=== PATIENT | male | born 1950 | race Caucasian/White ===

== ENCOUNTER 2023-05-20 11:50 | Inpatient (IN) | payer OTHER ==
[2023-05-20 13:58] LABS: BASO % 0.9 % (0-2.0); EOS % 1.4 % (0-4.5); HEMATOCRIT 43.7 % (35.4-49); HEMOGLOBIN 15.1 GM/dL (11.7-16.9); LYMPH % 33.3 % (8-40); MCH 31.7 pg (25.7-33.7); MCHC 34.4 g/dl (32.0-35.9); MEAN PLT VOLUME 7.2 fl (7.5-11.1); MONO % 10.3 % (3.8-10.2); NEUT % 54.1 % (42.8-82.8); PLATELET COUNT 311 10^3/uL (134-434); RBC 4.75 M/mm3 (4.00-5.60); RDW 13.1 % (11.9-15.9); WHITE BLOOD COUNT 4.1 K/mm3 (4.0-10.0)
[2023-05-20 14:28] LABS: ALBUMIN 3.6 g/dl (3.4-5.0); BLOOD UREA NITROGEN 20.1 mg/dL (7-18); CALCIUM 9.1 mg/dL (8.5-10.1)
[2023-05-20 14:29] LABS: MAGNESIUM 2.2 mg/dL (1.8-2.4)
[2023-05-20 14:31] LABS: CREATININE 0.7 mg/dL (0.55-1.3); PHOSPHOROUS 3.7 mg/dL (2.5-4.9)
[2023-05-20 14:34] LABS: BILIRUBIN,TOTAL 0.4 mg/dL (0.2-1); TOT PROT 7.3 g/dl (6.4-8.2)
[2023-05-20 14:38] LABS: N-TERMINAL BNP 95.1 pg/ml (5-125)
[2023-05-20 20:41] LABS: URINE APPEARANCE CLEAR; URINE BILIRUBIN NEGATIVE (NEGATIVE); URINE COLOR YELLOW; URINE GLUCOSE (UA) NEGATIVE (NEGATIVE); URINE KETONE 3+ (NEGATIVE); URINE LEUK ESTERASE NEGATIVE (NEGATIVE); URINE NITRITE NEGATIVE (NEGATIVE); URINE PROTEIN NEGATIVE (NEGATIVE); URINE UROBILINOGEN 0.2 mg/dL (0.2-1.0)
[2023-05-21 01:59] VITALS: BMI 18.3
[2023-05-21] MEDS: GABAPENTIN 100 MG CAPSULE PO SCH ×2 (09:34→21:52)
[2023-05-21] MEDS: ENOXAPARIN NA (PORCINE) 40 MG/0.4 ML DISP.SYRIN SQ SCH (09:34)
[2023-05-21] MEDS: ASPIRIN COATED 81 MG TABLET.EC PO SCH (09:34)
[2023-05-21] MEDS ORDERED: PATIENT'S OWN MEDICATION (NON-FORMULARY) (Enzalutamide [Xtandi] 80 MG Tablet) PO SCH (10:00)
[2023-05-21 10:51] LABS: HEMATOCRIT 39.3 % (35.4-49); HEMOGLOBIN 13.9 GM/dL (11.7-16.9); MCH 32.3 pg (25.7-33.7); MCHC 35.4 g/dl (32.0-35.9); MEAN CELL VOLUME 91.1 fl (80-96); MEAN PLT VOLUME 7.4 fl (7.5-11.1); PLATELET COUNT 277 10^3/uL (134-434); RBC 4.31 M/mm3 (4.00-5.60); RDW 12.7 % (11.9-15.9); WHITE BLOOD COUNT 3.3 K/mm3 (4.0-10.0)
[2023-05-21 11:10] LABS: POTASSIUM 3.8 mmol/L (3.5-5.1)
[2023-05-21 11:18] LABS: ALBUMIN 3.2 g/dl (3.4-5.0)
[2023-05-21 11:19] LABS: BLOOD UREA NITROGEN 17.7 mg/dL (7-18); CALCIUM 8.8 mg/dL (8.5-10.1); MAGNESIUM 2.1 mg/dL (1.8-2.4)
[2023-05-21 11:22] LABS: CREATININE 0.5 mg/dL (0.55-1.3)
[2023-05-21 11:24] LABS: BILIRUBIN,TOTAL 0.5 mg/dL (0.2-1); TOT PROT 6.4 g/dl (6.4-8.2)
[2023-05-21] MEDS ORDERED: PATIENT'S OWN MEDICATION (NON-FORMULARY) (Enzalutamide [Xtandi] 160 MG) PO SCH ×2 (13:00→13:10)
[2023-05-21] MEDS: AMINO ACIDS/PROTEIN HYDROLYS 30 ML LIQUID.PKT PO SCH (17:25)
[2023-05-21] MEDS: BACITRACIN ZINC 15 GM TUBE TOPICAL OINTMENT TP SCH (21:52)
[2023-05-21] MEDS: ATORVASTATIN CA 10 MG TABLET (FP) PO SCH (21:52)
[2023-05-21] MEDS: FLUTICASONE PROP 0.05% 16 GM NASAL SPRAY NS SCH (21:54)
[2023-05-22] MEDS: ENOXAPARIN NA (PORCINE) 40 MG/0.4 ML DISP.SYRIN SQ SCH (09:47)
[2023-05-22] MEDS: ASPIRIN COATED 81 MG TABLET.EC PO SCH (09:48)
[2023-05-22] MEDS: AMINO ACIDS/PROTEIN HYDROLYS 30 ML LIQUID.PKT PO SCH ×2 (09:48→17:40)
[2023-05-22] MEDS: GABAPENTIN 100 MG CAPSULE PO SCH ×2 (09:48→21:29)
[2023-05-22] MEDS: PATIENT'S OWN MEDICATION (NON-FORMULARY) (Enzalutamide [Xtandi] 160 MG) PO SCH (09:48)
[2023-05-22] MEDS: BACITRACIN ZINC 15 GM TUBE TOPICAL OINTMENT TP SCH ×2 (09:48→21:32)
[2023-05-22] MEDS: MULTIVITAMINS (DAILY MVI) TABLET (FP) PO SCH (09:48)
[2023-05-22] MEDS: FLUTICASONE PROP 0.05% 16 GM NASAL SPRAY NS SCH ×2 (09:50→21:32)
[2023-05-22 09:54] LABS: BASO % 0.6 % (0-2.0); EOS % 1.6 % (0-4.5); HEMOGLOBIN 13.4 GM/dL (11.7-16.9); LYMPH % 16.4 % (8-40); MCH 31.4 pg (25.7-33.7); MCHC 33.4 g/dl (32.0-35.9); MEAN PLT VOLUME 7.6 fl (7.5-11.1); MONO % 8.2 % (3.8-10.2); NEUT % 73.2 % (42.8-82.8); PLATELET COUNT 293 10^3/uL (134-434); RBC 4.26 M/mm3 (4.00-5.60); RDW 12.5 % (11.9-15.9); WHITE BLOOD COUNT 6.7 K/mm3 (4.0-10.0)
[2023-05-22 10:12] LABS: CALCIUM 8.8 mg/dL (8.5-10.1)
[2023-05-22 10:13] LABS: ALBUMIN 3.1 g/dl (3.4-5.0); BLOOD UREA NITROGEN 18.8 mg/dL (7-18); MAGNESIUM 2.2 mg/dL (1.8-2.4)
[2023-05-22 10:16] LABS: CREATININE 0.6 mg/dL (0.55-1.3)
[2023-05-22 10:18] LABS: BILIRUBIN,TOTAL 0.5 mg/dL (0.2-1); TOT PROT 6.3 g/dl (6.4-8.2)
[2023-05-22] MEDS: ATORVASTATIN CA 10 MG TABLET (FP) PO SCH (21:29)
[2023-05-23] MEDS: AMINO ACIDS/PROTEIN HYDROLYS 30 ML LIQUID.PKT PO SCH ×2 (08:20→17:01)
[2023-05-23] MEDS: PATIENT'S OWN MEDICATION (NON-FORMULARY) (Enzalutamide [Xtandi] 160 MG) PO SCH (08:21)
[2023-05-23 08:34] LABS: POTASSIUM 4.1 mmol/L (3.5-5.1)
[2023-05-23 08:36] LABS: ALBUMIN 2.9 g/dl (3.4-5.0); CALCIUM 8.4 mg/dL (8.5-10.1)
[2023-05-23 08:37] LABS: MAGNESIUM 2.1 mg/dL (1.8-2.4)
[2023-05-23 08:39] LABS: CREATININE 0.5 mg/dL (0.55-1.3)
[2023-05-23 08:41] LABS: BILIRUBIN,TOTAL 0.5 mg/dL (0.2-1)
[2023-05-23 08:42] LABS: BASO % 0.3 % (0-2.0); EOS % 1.5 % (0-4.5); HEMATOCRIT 38.8 % (35.4-49); HEMOGLOBIN 13.4 GM/dL (11.7-16.9); LYMPH % 17.1 % (8-40); MCH 31.8 pg (25.7-33.7); MCHC 34.5 g/dl (32.0-35.9); MEAN CELL VOLUME 92.3 fl (80-96); MEAN PLT VOLUME 7.8 fl (7.5-11.1); NEUT % 72.1 % (42.8-82.8); PLATELET COUNT 265 10^3/uL (134-434); RBC 4.21 M/mm3 (4.00-5.60); WHITE BLOOD COUNT 6.4 K/mm3 (4.0-10.0)
[2023-05-23] MEDS: ASPIRIN COATED 81 MG TABLET.EC PO SCH (09:10)
[2023-05-23] MEDS: GABAPENTIN 100 MG CAPSULE PO SCH ×2 (09:10→22:53)
[2023-05-23] MEDS: ENOXAPARIN NA (PORCINE) 40 MG/0.4 ML DISP.SYRIN SQ SCH (09:10)
[2023-05-23] MEDS: MULTIVITAMINS (DAILY MVI) TABLET (FP) PO SCH (09:11)
[2023-05-23] MEDS: BACITRACIN ZINC 15 GM TUBE TOPICAL OINTMENT TP SCH ×2 (09:12→22:52)
[2023-05-23] MEDS: FLUTICASONE PROP 0.05% 16 GM NASAL SPRAY NS SCH ×2 (09:13→22:52)
[2023-05-23] MEDS: ATORVASTATIN CA 10 MG TABLET (FP) PO SCH (22:53)
[2023-05-24] MEDS: AMINO ACIDS/PROTEIN HYDROLYS 30 ML LIQUID.PKT PO SCH ×2 (08:26→17:12)
[2023-05-24 08:30] LABS: HEMATOCRIT 38.4 % (35.4-49); HEMOGLOBIN 13.1 GM/dL (11.7-16.9); LYMPH % 25.4 % (8-40); MCH 31.6 pg (25.7-33.7); MEAN CELL VOLUME 93.1 fl (80-96); MEAN PLT VOLUME 7.7 fl (7.5-11.1); MONO % 11.8 % (3.8-10.2); NEUT % 57.8 % (42.8-82.8); PLATELET COUNT 264 10^3/uL (134-434); RBC 4.13 M/mm3 (4.00-5.60); RDW 12.5 % (11.9-15.9); WHITE BLOOD COUNT 3.9 K/mm3 (4.0-10.0)
[2023-05-24 08:31] LABS: POTASSIUM 4.3 mmol/L (3.5-5.1)
[2023-05-24 08:33] LABS: CALCIUM 8.4 mg/dL (8.5-10.1)
[2023-05-24] MEDS: PATIENT'S OWN MEDICATION (NON-FORMULARY) (Enzalutamide [Xtandi] 160 MG) PO SCH (08:33)
[2023-05-24 08:34] LABS: ALBUMIN 2.8 g/dl (3.4-5.0); BLOOD UREA NITROGEN 20.9 mg/dL (7-18); MAGNESIUM 2.1 mg/dL (1.8-2.4)
[2023-05-24 08:37] LABS: CREATININE 0.5 mg/dL (0.55-1.3)
[2023-05-24 08:38] LABS: BILIRUBIN,TOTAL 0.3 mg/dL (0.2-1)
[2023-05-24] MEDS: ASPIRIN COATED 81 MG TABLET.EC PO SCH (09:39)
[2023-05-24] MEDS: GABAPENTIN 100 MG CAPSULE PO SCH ×2 (09:39→21:53)
[2023-05-24] MEDS: ENOXAPARIN NA (PORCINE) 40 MG/0.4 ML DISP.SYRIN SQ SCH (09:39)
[2023-05-24] MEDS: MULTIVITAMINS (DAILY MVI) TABLET (FP) PO SCH (09:39)
[2023-05-24] MEDS: FLUTICASONE PROP 0.05% 16 GM NASAL SPRAY NS SCH ×2 (09:44→21:54)
[2023-05-24] MEDS: BACITRACIN ZINC 15 GM TUBE TOPICAL OINTMENT TP SCH ×2 (10:00→21:53)
[2023-05-24] MEDS: ATORVASTATIN CA 10 MG TABLET (FP) PO SCH (21:53)
[2023-05-25] MEDS: AMINO ACIDS/PROTEIN HYDROLYS 30 ML LIQUID.PKT PO SCH ×2 (08:24→17:24)
[2023-05-25] MEDS: PATIENT'S OWN MEDICATION (NON-FORMULARY) (Enzalutamide [Xtandi] 160 MG) PO SCH (08:24)
[2023-05-25] MEDS: ENOXAPARIN NA (PORCINE) 40 MG/0.4 ML DISP.SYRIN SQ SCH (09:22)
[2023-05-25] MEDS: FLUTICASONE PROP 0.05% 16 GM NASAL SPRAY NS SCH ×2 (09:23→22:54)
[2023-05-25] MEDS: ASPIRIN COATED 81 MG TABLET.EC PO SCH (09:23)
[2023-05-25] MEDS: GABAPENTIN 100 MG CAPSULE PO SCH ×2 (09:23→22:53)
[2023-05-25] MEDS: MULTIVITAMINS (DAILY MVI) TABLET (FP) PO SCH (09:23)
[2023-05-25] MEDS: BACITRACIN ZINC 15 GM TUBE TOPICAL OINTMENT TP SCH ×2 (11:40→22:55)
[2023-05-25] MEDS: ATORVASTATIN CA 10 MG TABLET (FP) PO SCH (22:53)
[2023-05-26 08:31] VITALS: RESP 18
[2023-05-26] MEDS: ENOXAPARIN NA (PORCINE) 40 MG/0.4 ML DISP.SYRIN SQ SCH (09:40)
[2023-05-26] MEDS: AMINO ACIDS/PROTEIN HYDROLYS 30 ML LIQUID.PKT PO SCH ×2 (09:40→17:06)
[2023-05-26] MEDS: PATIENT'S OWN MEDICATION (NON-FORMULARY) (Enzalutamide [Xtandi] 160 MG) PO SCH (09:42)
[2023-05-26] MEDS: MULTIVITAMINS (DAILY MVI) TABLET (FP) PO SCH (09:43)
[2023-05-26] MEDS: FLUTICASONE PROP 0.05% 16 GM NASAL SPRAY NS SCH ×2 (09:43→21:45)
[2023-05-26] MEDS: GABAPENTIN 100 MG CAPSULE PO SCH ×2 (09:43→21:45)
[2023-05-26] MEDS: ASPIRIN COATED 81 MG TABLET.EC PO SCH (09:43)
[2023-05-26] MEDS: BACITRACIN ZINC 15 GM TUBE TOPICAL OINTMENT TP SCH ×2 (09:44→21:46)
[2023-05-26] MEDS: POLYETHYLENE GLYCOL (HEALTHYLAX) 3350 17 GM PACKET PO SCH ×2 (10:26→22:40)
[2023-05-26 17:26] VITALS: BP 117/55; PULSE 75; TEMP 97.9
[2023-05-26] MEDS: ATORVASTATIN CA 10 MG TABLET (FP) PO SCH (21:45)
== END 2023-05-26 21:00 | DRG 542 ==
LOC: JER 11:50 → JERBED 20:03 → J7W 20:57 → OBSVTOIN 22:52
PROVIDERS: ADMIT Internal Medicine; ATTEND Nurse Practitioner Family
DX: C79.51 Secondary malignant neoplasm of bone (principal); E43 Unspecified severe protein-calorie malnutrition; Z68.1 Body mass index [BMI] 19.9 or less, adult; C61 Malignant neoplasm of prostate; G62.89 Other specified polyneuropathies; E78.5 Hyperlipidemia, unspecified; R29.6 Repeated falls; R33.8 Other retention of urine; I10 Essential (primary) hypertension; R53.1 Weakness; M51.37 Other intervertebral disc degeneration, lumbosacral region; R26.81 Unsteadiness on feet
CPT/HCPCS: 36415; 70450-TC; 71045-TC-FY; 72157-TC; 72158-TC; 72170-TC-FY; 73552-TC-LT-FY; 80053; 81003; 82607; 83036; 83605; 83735; 83880; 84100; 84443; 84484; 85025; 85027; 87086; 87635; 93005; 93010; 97116-GP; 97162-GP; 99285-25; G0378

== ENCOUNTER 2023-11-15 20:55 | Inpatient (IN) | payer OTHER ==
[2023-11-15] MEDS ORDERED: ACETAMINOPHEN INJECTION 100 ML IVPB ONE (21:26)
[2023-11-15] MEDS: SODIUM CHLORIDE 0.9% 500 ML INFUS.BAG IV ONE (21:31)
[2023-11-15] MEDS: ACETAMINOPHEN 1000 MG/100 ML BAG IVPB ONE (21:31)
[2023-11-15] MEDS ORDERED: PIPERACILLIN/TAZOB 4.5 GM 4.5 GM/100 ML BAG IVPB ONE (21:33)
[2023-11-15 21:39] LABS: BASO % 0.2 % (0-2.0); HEMATOCRIT 42.1 % (35.4-49); HEMOGLOBIN 14.2 GM/dL (11.7-16.9); LYMPH % 8.9 % (8-40); MCH 31.4 pg (25.7-33.7); MCHC 33.6 g/dl (32.0-35.9); MEAN CELL VOLUME 93.2 fl (80-96); MEAN PLT VOLUME 7.2 fl (7.5-11.1); MONO % 6.6 % (3.8-10.2); NEUT % 84.3 % (42.8-82.8); PLATELET COUNT 287 10^3/uL (134-434); RBC 4.52 M/mm3 (4.00-5.60); RDW 12.8 % (11.9-15.9); WHITE BLOOD COUNT 10.4 K/mm3 (4.0-10.0)
[2023-11-15 21:46] LABS: VENOUS BASE EXCESS 0.8 mmol/L (-2-2); VENOUS O2 SATURATION 81.1 % (70-80); VENOUS PH 7.412 (7.310-7.410)
[2023-11-15 21:47] LABS: INR 1.05 (0.83-1.09); PROTHROMBIN TIME (PATIENT) 12.2 SEC (9.7-13.0)
[2023-11-15 21:50] LABS: ACTIVATED PTT 31.9 SECONDS (25.2-36.5)
[2023-11-15 21:58] LABS: POTASSIUM 3.5 mmol/L (3.5-5.1)
[2023-11-15 22:00] LABS: CALCIUM 10.1 mg/dL (8.5-10.1)
[2023-11-15 22:01] LABS: ALBUMIN 3.1 g/dl (3.4-5.0); BLOOD UREA NITROGEN 16.7 mg/dL (7-18); MAGNESIUM 1.9 mg/dL (1.8-2.4)
[2023-11-15 22:03] LABS: CREATININE 0.6 mg/dL (0.55-1.3)
[2023-11-15] MEDS: PIPERACILLIN/TAZOB 4.5 GM 4.5 GM in DEXTROSE 5%-WATER 100 ML IVPB ONE (22:03)
[2023-11-15 22:05] LABS: TOT PROT 6.7 g/dl (6.4-8.2)
[2023-11-15 22:06] LABS: BILIRUBIN,TOTAL 0.3 mg/dL (0.2-1)
[2023-11-15] MEDS ORDERED: ALBUTEROL SO4 2.5/IPRATROPIUM 0.5 INH SOL 3 ML VIAL.NEB. NEB ONE (22:37)
[2023-11-15] MEDS: VANCOMYCIN HCL 1,500 MG in DEXTROSE 5%-WATER - 500 ML IVPB ONE (22:42)
[2023-11-15] MEDS: VANCOMYCIN PREMIX 1.5 GM 1,500 MG/300 ML BAG IVPB ONE (22:43)
[2023-11-15] MEDS: ALBUTEROL SO4 2.5/IPRATROPIUM 0.5 INH SOL 3 ML VIAL.NEB. NEB SCH (22:43)
[2023-11-15] MEDS ORDERED: DEXAMETHASONE SOD PHOSPHATE 4 MG/1 ML VIAL ONE (22:53)
[2023-11-15] MEDS: DEXAMETHASONE SOD PHOSPHATE 10 MG/1 ML VIAL IVPUSH ONE (23:04)
[2023-11-16] MEDS: DEXTROSE 5%-NORMAL SALINE 1,000 ML IV SCH (00:03)
[2023-11-16 01:55] LABS: URINE APPEARANCE BLOODY; URINE BILIRUBIN NEGATIVE (NEGATIVE); URINE COLOR RED; URINE GLUCOSE (UA) NEGATIVE (NEGATIVE)
[2023-11-16 01:56] LABS: URINE PROTEIN 300 (NEGATIVE); URINE UROBILINOGEN 0.2 mg/dL (0.2-1.0)
[2023-11-16 02:09] LABS: URINE RBC MANY /uL (0-23.9)
[2023-11-16 02:10] LABS: EPI CELLS RARE /uL (0-25.1); URINE WBC RARE /uL (0-25.8)
[2023-11-16] MEDS ORDERED: ACETAMINOPHEN INJECTION 100 ML IVPB ONE (05:48)
[2023-11-16] MEDS: ACETAMINOPHEN 1000 MG/100 ML BAG IVPB PRN (05:52)
[2023-11-16] MEDS: SODIUM CHLORIDE 500 ML IV STA (06:51)
[2023-11-16 07:51] LABS: HEMATOCRIT 37.8 % (35.4-49); HEMOGLOBIN 12.6 GM/dL (11.7-16.9); MCH 31.1 pg (25.7-33.7); MCHC 33.2 g/dl (32.0-35.9); MEAN CELL VOLUME 93.8 fl (80-96); MEAN PLT VOLUME 7.2 fl (7.5-11.1); PLATELET COUNT 183 10^3/uL (134-434); RBC 4.03 M/mm3 (4.00-5.60); RDW 12.9 % (11.9-15.9); WHITE BLOOD COUNT 11.7 K/mm3 (4.0-10.0)
[2023-11-16 08:19] LABS: CHLORIDE 110 mmol/L (98-107); SODIUM 140 mmol/L (136-145)
[2023-11-16] MEDS ORDERED: PIPERACILLIN/TAZOB 2.25 GM 2.25 GM/50 ML BAG IVPB ONE (08:20)
[2023-11-16] MEDS: PIPERACILLIN/TAZOB 2.25 GM 2.25 GM in DEXTROSE 5%-WATER - 50 ML IVPB SCH (08:28)
[2023-11-16 08:31] LABS: BLOOD UREA NITROGEN 16.8 mg/dL (7-18); CALCIUM 8.8 mg/dL (8.5-10.1); CO2 26 mmol/L (21-32); GLUCOSE,RANDOM 116 mg/dL (74-106); MAGNESIUM 1.5 mg/dL (1.8-2.4)
[2023-11-16 08:32] LABS: CREATININE 0.5 mg/dL (0.55-1.3); SGOT/AST 21 U/L (15-37)
[2023-11-16 08:34] LABS: BILIRUBIN,TOTAL 0.2 mg/dL (0.2-1); SGPT/ALT 13 U/L (13-61); TOT PROT 5.2 g/dl (6.4-8.2)
[2023-11-16 08:35] LABS: ALK PHOS 70 U/L (45-117); PHOSPHOROUS 3.1 mg/dL (2.5-4.9)
[2023-11-16 08:39] LABS: ALBUMIN 2.4 g/dl (3.4-5.0); ANION GAP 4 mmol/L (4-13); POTASSIUM 2.6 mmol/L (3.5-5.1)
[2023-11-16 09:29] LABS: ANISOCYTOSIS 1+; MACROCYTOSIS 0
[2023-11-16] MEDS ORDERED: DEXAMETHASONE SOD PHOSPHATE 10 MG/1 ML VIAL IVPUSH SCH (10:00)
[2023-11-16] MEDS ORDERED: KCL 10 MEQ IVPB 10 MEQ/100 ML INFUS.BAG IVPB ONE ×3 (10:08→12:54)
[2023-11-16] MEDS ORDERED: POTASSIUM CHLORIDE ORAL LIQUID 20 MEQ/15 ML ONE (10:09)
[2023-11-16] MEDS: KCL 10 MEQ IVPB 10 MEQ/100 ML INFUS.BAG IVPB SCH ×2 (10:16→23:05)
[2023-11-16] MEDS: POTASSIUM CHLORIDE ORAL LIQUID 20 MEQ/15 ML PO SCH (10:18)
[2023-11-16] MEDS ORDERED: VANCOMYCIN/WATER FOR INJ (PEG) 1,000 MG/200 ML BAG IVPB SCH (11:00)
[2023-11-16] MEDS ORDERED: MAGNESIUM 2GM/50ML STERILE WATER IVPB IVPB ONE (12:00)
[2023-11-16] MEDS: VANCOMYCIN 1,000 MG in DEXTROSE 5%-WATER - 250 ML IVPB SCH (14:12)
[2023-11-16] MEDS: REMDESIVIR 200 MG in SODIUM CHLORIDE 250 ML IVPB ONE (15:09)
[2023-11-16] MEDS: PIPERACILLIN/TAZOB 4.5 GM 4.5 GM in DEXTROSE 5%-WATER 100 ML IVPB SCH (17:51)
[2023-11-16] MEDS ORDERED: PIPERACILLIN/TAZOB 2.25 GM 2.25 GM in DEXTROSE 5%-WATER - 50 ML IVPB SCH (18:00)
[2023-11-16] MEDS ORDERED: DEXAMETHASONE SOD PHOSPHATE 10 MG/1 ML VIAL IVPUSH ONE (22:50)
[2023-11-16] MEDS: SODIUM CHLORIDE 1,000 ML IV SCH (23:05)
[2023-11-17 04:02] LABS: HEMATOCRIT 38.6 % (35.4-49); HEMOGLOBIN 12.7 GM/dL (11.7-16.9); MCH 30.6 pg (25.7-33.7); MEAN CELL VOLUME 92.7 fl (80-96); MEAN PLT VOLUME 7.5 fl (7.5-11.1); PLATELET COUNT 205 10^3/uL (134-434); RBC 4.16 M/mm3 (4.00-5.60); RDW 13.3 % (11.9-15.9); WHITE BLOOD COUNT 23.2 K/mm3 (4.0-10.0)
[2023-11-17 04:25] LABS: ALBUMIN 2.5 g/dl (3.4-5.0); BLOOD UREA NITROGEN 16.8 mg/dL (7-18); CALCIUM 9.8 mg/dL (8.5-10.1); POTASSIUM 3.5 mmol/L (3.5-5.1)
[2023-11-17 04:26] LABS: CREATININE 0.4 mg/dL (0.55-1.3)
[2023-11-17 04:27] LABS: BILIRUBIN,TOTAL 0.5 mg/dL (0.2-1)
[2023-11-17 04:29] LABS: TOT PROT 5.8 g/dl (6.4-8.2)
[2023-11-17 06:23] LABS: ANISOCYTOSIS 3+; MACROCYTOSIS 0; ROULEAU 1+
[2023-11-17 08:20] LABS: POTASSIUM 3.2 mmol/L (3.5-5.1)
[2023-11-17 08:24] LABS: HEMATOCRIT 37.1 % (35.4-49); HEMOGLOBIN 12.1 GM/dL (11.7-16.9); MCH 30.6 pg (25.7-33.7); MCHC 32.6 g/dl (32.0-35.9); MEAN CELL VOLUME 93.8 fl (80-96); MEAN PLT VOLUME 8.1 fl (7.5-11.1); PLATELET COUNT 215 10^3/uL (134-434); RBC 3.96 M/mm3 (4.00-5.60); RDW 13.2 % (11.9-15.9); WHITE BLOOD COUNT 23.4 K/mm3 (4.0-10.0)
[2023-11-17 08:29] LABS: CALCIUM 9.3 mg/dL (8.5-10.1)
[2023-11-17 08:30] LABS: ALBUMIN 2.5 g/dl (3.4-5.0); BLOOD UREA NITROGEN 16.7 mg/dL (7-18); MAGNESIUM 1.5 mg/dL (1.8-2.4)
[2023-11-17 08:32] LABS: CREATININE 0.4 mg/dL (0.55-1.3)
[2023-11-17 08:34] LABS: BILIRUBIN,TOTAL 0.5 mg/dL (0.2-1); TOT PROT 5.5 g/dl (6.4-8.2)
[2023-11-17 09:40] LABS: ANISOCYTOSIS 1+; MACROCYTOSIS 0
[2023-11-17] MEDS: DEXAMETHASONE SOD PHOSPHATE 10 MG/1 ML VIAL IVPUSH SCH (09:59)
[2023-11-17] MEDS ORDERED: METOPROLOL TARTRATE 5 MG/5 ML VIAL ONE (10:29)
[2023-11-17] MEDS: METOPROLOL TARTRATE 5 MG/5 ML VIAL IVPUSH ONE (10:45)
[2023-11-17] MEDS: METOPROLOL TARTRATE 25 MG TABLET (FP) PO SCH ×2 (10:47→16:37)
[2023-11-17] MEDS ORDERED: DEXTROSE 5%-LACTATED RINGERS 1,000 ML IV SCH ×2 (13:15→20:51)
[2023-11-17] MEDS: APIXABAN 5 MG TABLET PO SCH ×2 (13:21→22:40)
[2023-11-17] MEDS: LACTATED RINGERS SOLUTION 1000 ML INFUS.BAG IV ONE (13:22)
[2023-11-17] MEDS: REMDESIVIR 100 MG in SODIUM CHLORIDE 250 ML IVPB SCH (13:32)
[2023-11-17] MEDS ORDERED: METOPROLOL TARTRATE 5 MG/5 ML VIAL IVPUSH PRN (14:00)
[2023-11-17] MEDS: MAGNESIUM SULF 50% (8.12 MEQ/2 ML-1 GM VIAL) IVPB ONE (14:33)
[2023-11-17] MEDS: KCL 10 MEQ IVPB 10 MEQ/100 ML INFUS.BAG IVPB SCH (16:37)
[2023-11-17 21:58] LABS: HEMATOCRIT 35.7 % (35.4-49); HEMOGLOBIN 11.8 GM/dL (11.7-16.9); MCH 30.6 pg (25.7-33.7); MCHC 33.2 g/dl (32.0-35.9); MEAN CELL VOLUME 92.4 fl (80-96); MEAN PLT VOLUME 7.7 fl (7.5-11.1); PLATELET COUNT 204 10^3/uL (134-434); RBC 3.86 M/mm3 (4.00-5.60); RDW 13.4 % (11.9-15.9); WHITE BLOOD COUNT 22.7 K/mm3 (4.0-10.0)
[2023-11-17] MEDS: DEXTROSE 5%-LACTATED RINGERS 1,000 ML IV SCH (22:01)
[2023-11-17] MEDS: MAGNESIUM 2GM/50ML STERILE WATER IVPB IVPB ONE (22:01)
[2023-11-17] MEDS: CHLORHEXIDINE GLUCONATE 4% CLEANSER FOR DECOLONIZATION TP SCH (22:02)
[2023-11-17] MEDS: MUPIROCIN 2% TOPICAL OINTMENT FOR DECOLONIZATION NS SCH (22:02)
[2023-11-17 22:15] LABS: INR 1.26 (0.83-1.09); PROTHROMBIN TIME (PATIENT) 14.6 SEC (9.7-13.0)
[2023-11-17 22:17] LABS: ACTIVATED PTT 35.3 SECONDS (25.2-36.5)
[2023-11-17 22:29] LABS: POTASSIUM 3.8 mmol/L (3.5-5.1)
[2023-11-17 22:31] LABS: CALCIUM 8.9 mg/dL (8.5-10.1)
[2023-11-17 22:33] LABS: ALBUMIN 2.2 g/dl (3.4-5.0); BLOOD UREA NITROGEN 16.3 mg/dL (7-18); MAGNESIUM 1.9 mg/dL (1.8-2.4)
[2023-11-17 22:35] LABS: CREATININE 0.4 mg/dL (0.55-1.3); PHOSPHOROUS 1.7 mg/dL (2.5-4.9)
[2023-11-17 22:36] LABS: BILIRUBIN,TOTAL 0.3 mg/dL (0.2-1); TOT PROT 5.3 g/dl (6.4-8.2)
[2023-11-17] MEDS: METOPROLOL TARTRATE 5 MG/5 ML VIAL IVPUSH PRN (22:40)
[2023-11-17] MEDS: POTASSIUM CHLORIDE ORAL LIQUID 20 MEQ/15 ML PO SCH (23:12)
[2023-11-17] MEDS: POTASSIUM PHOSPHATE 15 MM in SODIUM CHLORIDE 250 ML IVPB ONE (23:33)
[2023-11-18] MEDS: PIPERACILLIN/TAZOB 4.5 GM 4.5 GM in DEXTROSE 5%-WATER 100 ML IVPB SCH (01:36)
[2023-11-18] MEDS ORDERED: dilTIAZem HCL 125 MG/25 ML - 25 ML VIAL ONE (05:11)
[2023-11-18] MEDS: ALBUTEROL SO4 2.5/IPRATROPIUM 0.5 INH SOL 3 ML VIAL.NEB. NEB PRN (06:10)
[2023-11-18] MEDS: dilTIAZem HCL 50 MG/10 ML - 10 ML VIAL IVPUSH ONE ×2 (06:18→07:05)
[2023-11-18 07:36] LABS: HEMATOCRIT 42.2 % (35.4-49); HEMOGLOBIN 14.1 GM/dL (11.7-16.9); MCHC 33.5 g/dl (32.0-35.9); MEAN CELL VOLUME 92.8 fl (80-96); MEAN PLT VOLUME 7.7 fl (7.5-11.1); PLATELET COUNT 230 10^3/uL (134-434); RBC 4.55 M/mm3 (4.00-5.60); RDW 13.1 % (11.9-15.9); WHITE BLOOD COUNT 19.5 K/mm3 (4.0-10.0)
[2023-11-18 07:51] LABS: POTASSIUM 3.5 mmol/L (3.5-5.1)
[2023-11-18 07:53] LABS: ALBUMIN 2.4 g/dl (3.4-5.0); BLOOD UREA NITROGEN 15.5 mg/dL (7-18); CALCIUM 8.9 mg/dL (8.5-10.1); MAGNESIUM 1.7 mg/dL (1.8-2.4)
[2023-11-18 07:57] LABS: CREATININE 0.4 mg/dL (0.55-1.3)
[2023-11-18 07:59] LABS: BILIRUBIN,TOTAL 0.5 mg/dL (0.2-1); TOT PROT 5.8 g/dl (6.4-8.2)
[2023-11-18 09:12] LABS: ANISOCYTOSIS 0; MACROCYTOSIS 0
[2023-11-18] MEDS: DEXAMETHASONE SOD PHOSPHATE 10 MG/1 ML VIAL IVPUSH SCH (09:19)
[2023-11-18] MEDS: MAGNESIUM SULF 50% (8.12 MEQ/2 ML-1 GM VIAL) IVPB ONE (09:19)
[2023-11-18] MEDS ORDERED: LEVALBUTEROL HCL 0.31 MG/3 ML VIAL.NEB IH ONE (10:00)
[2023-11-18] MEDS: LEVALBUTEROL HCL 0.31 MG/3 ML VIAL.NEB IH SCH (11:25)
[2023-11-18] MEDS: ACETYLCYSTEINE 20% 200MG/ML 4 ML VIAL *FOR ORAL / INH USE ONLY NEB SCH (11:25)
[2023-11-18] MEDS: REMDESIVIR 100 MG in SODIUM CHLORIDE 250 ML IVPB SCH (13:42)
[2023-11-18] MEDS: dilTIAZem HCL 30 MG TABLET PO SCH (13:43)
[2023-11-19] MEDS: OLANZapine 5 MG TABLET PO PRN
[2023-11-19 06:49] LABS: BLOOD UREA NITROGEN 13.1 mg/dL (7-18); CALCIUM 8.3 mg/dL (8.5-10.1); MAGNESIUM 1.6 mg/dL (1.8-2.4)
[2023-11-19 06:52] LABS: CREATININE 0.3 mg/dL (0.55-1.3); PHOSPHOROUS 2.4 mg/dL (2.5-4.9)
[2023-11-19 07:00] LABS: HEMATOCRIT 41.1 % (35.4-49); HEMOGLOBIN 13.6 GM/dL (11.7-16.9); MCH 30.7 pg (25.7-33.7); MCHC 33.2 g/dl (32.0-35.9); MEAN CELL VOLUME 92.5 fl (80-96); MEAN PLT VOLUME 8.2 fl (7.5-11.1); PLATELET COUNT 246 10^3/uL (134-434); RBC 4.44 M/mm3 (4.00-5.60); RDW 13.4 % (11.9-15.9); WHITE BLOOD COUNT 15.1 K/mm3 (4.0-10.0)
[2023-11-19] MEDS: MAGNESIUM OXIDE 400 MG TABLET (FP) PO ONE (07:51)
[2023-11-19] MEDS: MAGNESIUM SULF 50% (8.12 MEQ/2 ML-1 GM VIAL) IVPB ONE (08:11)
[2023-11-19] MEDS: KCL 10 MEQ IVPB 10 MEQ/100 ML INFUS.BAG IVPB SCH (08:11)
[2023-11-19] MEDS ORDERED: dilTIAZem HCL 60 MG TABLET PO SCH (08:23)
[2023-11-19] MEDS: dilTIAZem HCL 50 MG/10 ML - 10 ML VIAL IVPUSH ONE ×2 (08:31→10:25)
[2023-11-19] MEDS: dilTIAZem HCL 60 MG TABLET PO ONE (09:20)
[2023-11-19] MEDS: dilTIAZem HCL 60 MG TABLET PO SCH ×2 (10:25→14:21)
[2023-11-19] MEDS ORDERED: APIXABAN 5 MG TABLET PO SCH (19:09)
[2023-11-19] MEDS: APIXABAN 5 MG TABLET PO SCH (22:10)
[2023-11-19] MEDS: dilTIAZem HCL 25 MG/5 ML - 5 ML VIAL IVPUSH PRN (22:10)
[2023-11-20 07:19] LABS: HEMATOCRIT 40.3 % (35.4-49); HEMOGLOBIN 13.4 GM/dL (11.7-16.9); MCHC 33.3 g/dl (32.0-35.9); MEAN PLT VOLUME 7.7 fl (7.5-11.1); PLATELET COUNT 287 10^3/uL (134-434); RBC 4.33 M/mm3 (4.00-5.60); RDW 13.7 % (11.9-15.9); WHITE BLOOD COUNT 15.2 K/mm3 (4.0-10.0)
[2023-11-20 07:42] LABS: CHLORIDE 108 mmol/L (98-107); SODIUM 142 mmol/L (136-145)
[2023-11-20 08:00] LABS: GLUCOSE,RANDOM 161 mg/dL (74-106)
[2023-11-20 08:01] LABS: BLOOD UREA NITROGEN 12.4 mg/dL (7-18); CO2 29 mmol/L (21-32)
[2023-11-20 08:03] LABS: CALCIUM 8.4 mg/dL (8.5-10.1); CREATININE 0.3 mg/dL (0.55-1.3); MAGNESIUM 1.7 mg/dL (1.8-2.4); PHOSPHOROUS 2.1 mg/dL (2.5-4.9)
[2023-11-20 08:09] LABS: ANION GAP 5 mmol/L (4-13); POTASSIUM 2.8 mmol/L (3.5-5.1)
[2023-11-20 08:15] LABS: ANISOCYTOSIS 1+; MACROCYTOSIS 0
[2023-11-20] MEDS: KCL 10 MEQ IVPB 10 MEQ/100 ML INFUS.BAG IVPB SCH (08:30)
[2023-11-20] MEDS: POTASSIUM CHLORIDE IV SCH ×2 (10:13→12:00)
[2023-11-20] MEDS: LACTATED RINGERS IV SCH ×2 (10:13→12:00)
[2023-11-20] MEDS: DEXTROSE 5% IV SCH ×2 (10:13→12:00)
[2023-11-20 12:48] VITALS: BMI 22.4
[2023-11-20] MEDS ORDERED: FENTANYL PATCH WASTE TD PRN (13:07)
[2023-11-20] MEDS: fentaNYL 25mcg/hr PATCH.TD72 TD SCH (14:52)
[2023-11-20] MEDS: MORPHINE SULFATE/0.9% NACL/PF 100 MG/100 ML BAG IVPB SCH (14:53)
[2023-11-20] MEDS: ENOXAPARIN NA (PORCINE) 80 MG/0.8 ML DISP.SYRIN SQ SCH (14:56)
[2023-11-20] MEDS: FUROSEMIDE 40 MG/4 ML INJECTABLE VIAL IVPUSH ONE (15:00)
[2023-11-20 20:33] VITALS: TEMP 97.2
[2023-11-21 08:37] VITALS: BP 49/34; PULSE 56; RESP 10
[2023-11-21] MEDS ORDERED: FUROSEMIDE 40 MG/4 ML INJECTABLE VIAL IVPUSH SCH (10:00)
== END 2023-11-21 12:15 | disposition expired | DRG 871 ==
LOC: JER 20:55 → JERBED 21:23 → J4W 11-16 14:38 → JICU 11-17 19:56
PROVIDERS: ADMIT Internal Medicine; ATTEND Family Medicine
PROC: XW033E5 Introduction of Remdesivir Anti-infective into Peripheral Vein, Percutaneous Approach, New Technology Group 5 (ICD-10-PCS; principal; 2023-11-16)
DX: A41.9 Sepsis, unspecified organism (principal); E43 Unspecified severe protein-calorie malnutrition; U07.1 COVID-19; J12.82 Pneumonia due to coronavirus disease 2019; J96.01 Acute respiratory failure with hypoxia; R53.2 Functional quadriplegia; C79.51 Secondary malignant neoplasm of bone; I48.92 Unspecified atrial flutter; J98.11 Atelectasis; E78.5 Hyperlipidemia, unspecified; I10 Essential (primary) hypertension; C61 Malignant neoplasm of prostate; G62.9 Polyneuropathy, unspecified; R31.9 Hematuria, unspecified; E87.6 Hypokalemia; E83.42 Hypomagnesemia; I48.91 Unspecified atrial fibrillation; Z68.22 Body mass index [BMI] 22.0-22.9, adult
CPT/HCPCS: 0241U-QW; 36415; 71045-TC-FY; 80048; 80053; 81003; 82550; 82803; 82962; 83605; 83735; 83880; 84100; 84153; 84484; 85025; 85027; 85379; 85610; 85730; 86140; 86850; 86900; 86901; 87040; 87081; 87086; 87899; 93005; 93010; 93306-TC; 93970-TC; 94640; 94660; 99285-25; J0131; J0248; J1100